=== PATIENT | female | born 1950 | race Hispanic/Latino ===

== ENCOUNTER 2021-08-10 16:15 | Inpatient (IN) | payer MEDICARE ==
--- NOTE | 2021-08-11 08:48 | History and Physical Report ---
GP History & Physical - History of Present Illness Date of admission: 08/10/21 Date of Examination: 08/11/21 Reason for Admission: Danger to self, Failure of Outpatient Treatment, Severe anxiety/depression History of Present Illness: The patient was seen today. She has poor insight. She says she was admitted to the hospital because she fell and hit her head. She says "I then started seizing and couldn't remember anything." She thinks that's the reason she was admitted to [facility]. The patient says she lives with her son. She says her son moved in after her passed in 2018. She denies any psych diagnoses but states she takes depakote. The patient denies SI/HI or hallucinations of any kind. PAST PSYCHIATRIC HISTORY: Unable to obtain PAST MEDICAL HISTORY: None reported Family Psychiatric History: None reported or documented SOCIAL HISTORY Unable to obtain REVIEW OF SYSTEMS Unable to obtain MENTAL STATUS EXAMINATION Unable to obtain Assessment (1) Neurocognitive W/Behavioral Disturbances Current Visit: Yes Status: Acute Treatment Plan Patient admitted for inpatient psychiatric evaluation, medication adjustment and close monitoring The patient's behavior, mood, sleep and appetite will be closely monitored. Patient enrolled in individual and group therapeutic sessions and encouraged to attend. Patient provided with a safe and structured environment. Patient's physical health needs will be addressed by the Hospitalist. Hospitalist Consulted Labs including CBC, CMP, Lipid profile and Hemoglobin A1C levels ordered for baseline reference Social Assessment will be completed and the Slab Grinder will work with patient and family to ensure a suitable and safe disposition Medication adjustment will be made as clinically indicated Restarted Home meds Usual Wellness Congregation/Preservation: - Start Trazodone 50 mg po QHS & 50 mg po QHS PRN between 10 PM & 2 AM for insomnia - Start Melatonin 5 mg po QHS to promote circadian rhythm The patient agreed on the treatment plan, understood the risk, benefit, alternative treatment, potential consequence of no treatment, and gave informed consent. Estimated days: 7 Post hospital care: primary care provider, psychiatric provider Case staffed with Dr. Lopez Legal Status: Voluntary Reaction to Hospitalization: Accepting Medications and Allergies Allergies Allergy/AdvReac Type Severity Reaction Status Date / Time cephalexin Allergy Unknown Verified 08/11/21 00:21 diphenhydramine Allergy Unknown Verified 08/11/21 00:22 gabapentin Allergy Unknown Unverified 08/10/21 16:24 Penicillins Allergy Unknown Unverified 08/10/21 16:24 Sulfa (Sulfonamide Allergy Unknown Unverified 08/10/21 16:24 Antibiotics) zolpidem Allergy Unknown Unverified 08/10/21 16:25 Home Medications Medication Instructions Recorded Confirmed Last Taken Type Divalproex Dr [DepaKOTE DR] 250 mg PO TID 08/10/21 08/10/21 Unknown History Oxycodone HCl [roxiCODONE] 30 mg PO Q8H PRN 08/10/21 08/10/21 Unknown History Quetiapine Fumarate [SEROquel] 50 mg PO QHS 08/10/21 08/10/21 Unknown History Tramadol HCl 25 mg PO Q8H PRN 08/10/21 08/11/21 Unknown History amLODIPine [Norvasc] 10 mg PO DAILY 08/10/21 08/10/21 Unknown History clonazePAM [KlonoPIN] 0.5 mg PO TID PRN 08/10/21 08/10/21 Unknown History Acetaminophen [Aphen] 650 mg PO Q6H PRN 08/11/21 08/11/21 Unknown History Ciprofloxacin HCl 500 mg PO BID 08/11/21 08/11/21 Unknown History Temazepam [Restoril] 30 mg PO QHS 08/11/21 08/11/21 Unknown History Results - Results Labs/Vitals: Last Vital Signs Temp 98.3 F 08/10/21 23:18 Pulse 74 08/10/21 23:18 Resp 16 08/10/21 23:18 BP 103/60 08/10/21 23:18 Pulse Ox 94 08/10/21 23:18 Physical Examination - Constitutional Vitals: Vital Signs Temp Pulse Resp BP Pulse Ox 98.3 F 74 16 103/60 94 08/10/21 23:18 08/10/21 23:18 08/10/21 23:18 08/10/21 23:18 08/10/21 23:18 Temperature -Last 24 Hours Temperature 98.3 F Mental Status Exam - Vital signs Last Vital Signs Temp 98.3 F 08/10/21 23:18 Pulse 74 08/10/21 23:18 Resp 16 08/10/21 23:18 BP 103/60 08/10/21 23:18 Pulse Ox 94 08/10/21 23:18 Physician Certification - Certification Statement Physician Certification Statement: This is an acknowledgement statement that ZOHREH GOMES is a 71 year old F who requires inpatient psychiatric admission for treatment which could reasonably be expected to improve the patient's condition for Estimated period of time patient will need to remain in the hospital: [ ] Plan for post-hospital care: [ ]
[2021-08-11] MEDS ORDERED: OXYCODONE HCL 30 MG PO PRN (08:50)
[2021-08-11] MEDS ORDERED: TRAMADOL HCL 100 MG PO PRN (08:50)
[2021-08-11] MEDS ORDERED: ACETAMINOPHEN 325 MG TAB PO PRN (09:00)
[2021-08-11] MEDS ORDERED: clonazePAM 0.5 MG TAB PO PRN (09:00)
[2021-08-11] MEDS ORDERED: NON-FORMULARY EACH (Ciprofloxacin Hcl [Ciprofloxacin Hcl] 500 MG Tablet) PO SCH (10:00)
[2021-08-11] MEDS: amLODIPine 10 MG TAB PO SCH (10:30)
[2021-08-11] MEDS: levoFLOXacin 500 MG TAB PO SCH (10:30)
[2021-08-11] MEDS ORDERED: traMADol 50 MG TAB PO PRN (12:00)
[2021-08-11] MEDS: DIVALPROEX DR 250 MG TAB PO SCH ×2 (14:57→20:50)
--- NOTE | 2021-08-11 15:15 | Consultation ---
History of Present Illness - Reason for Consult Consult date: 08/11/21 Medical consult Requesting physician: ERWIN LEWIS - History of Present Illness Patient was admitted with neurocognitive behavioral disturbances for further evaluation and management in [facility] Hospital service was requested for medical consult Patient has significant past medical history of hypertension, severe dementia, A. fib, acute on chronic encephalopathy, recurrent UTI The time of my evaluation patient is alert and awake responding appropriately Patient denies any chest pain or shortness of breath Denies any headache dizziness weakness or numbness Denies nausea vomiting or abdominal pain Patient has no new complaints but reports that she does not know why she is here Past History Past Medical History: atrial fib (With RVR currently rate controlled next), hypertension, seizures, other (And coagulopathy, dementia, recurrent UTI) Past Surgical History: No surgical history, Other (Multiple spine surgeries) Social history: denies: smoking, alcohol abuse, prescription drug abuse Family history: no significant family history Medications and Allergies Allergies Allergy/AdvReac Type Severity Reaction Status Date / Time cephalexin Allergy Unknown Verified 08/11/21 00:21 diphenhydramine Allergy Unknown Verified 08/11/21 00:22 gabapentin Allergy Unknown Unverified 08/10/21 16:24 Penicillins Allergy Unknown Unverified 08/10/21 16:24 Sulfa (Sulfonamide Allergy Unknown Unverified 08/10/21 16:24 Antibiotics) zolpidem Allergy Unknown Unverified 08/10/21 16:25 Home Medications Medication Instructions Recorded Confirmed Last Taken Type Divalproex Dr [DepaKOTE DR] 250 mg PO TID 08/10/21 08/10/21 Unknown History Oxycodone HCl [roxiCODONE] 30 mg PO Q8H PRN 08/10/21 08/10/21 Unknown History Quetiapine Fumarate [SEROquel] 50 mg PO QHS 08/10/21 08/10/21 Unknown History Tramadol HCl 25 mg PO Q8H PRN 08/10/21 08/11/21 Unknown History amLODIPine [Norvasc] 10 mg PO DAILY 08/10/21 08/10/21 Unknown History clonazePAM [KlonoPIN] 0.5 mg PO TID PRN 08/10/21 08/10/21 Unknown History Acetaminophen [Aphen] 650 mg PO Q6H PRN 08/11/21 08/11/21 Unknown History Ciprofloxacin HCl 500 mg PO BID 08/11/21 08/11/21 Unknown History Temazepam [Restoril] 30 mg PO QHS 08/11/21 08/11/21 Unknown History Active Meds: Active Medications Acetaminophen (Acetaminophen 325 Mg Tab) 650 mg PO Q6H PRN PRN Reason: Headache Amlodipine Besylate (Amlodipine 10 Mg Tab) 10 mg PO DAILY [facility] Last Admin: 08/11/21 10:30 Dose: 10 mg Clonazepam (Clonazepam 0.5 Mg Tab) 0.5 mg PO TID PRN PRN Reason: Seizures Divalproex Sodium (Divalproex Dr 250 Mg Tab) 250 mg PO TID [facility] Last Admin: 08/11/21 14:57 Dose: 250 mg Levofloxacin (Levofloxacin 500 Mg Tab) 500 mg PO Q24HR [facility] Last Admin: 08/11/21 10:30 Dose: 500 mg Oxycodone HCl (Oxycodone 15 Mg Tab) 30 mg PO Q8HR PRN PRN Reason: Pain , Severe (7-10) Quetiapine Fumarate (Quetiapine 25 Mg Tab) 50 mg PO QHS [facility] Temazepam (Temazepam 15 Mg Cap) 30 mg PO QHS [facility] Tramadol HCl (Tramadol 50 Mg Tab) 25 mg PO Q8H PRN PRN Reason: Pain, Moderate (4-6) Review of Systems Constitutional: fatigue, weakness, no weight loss, no weight gain Ears, nose, mouth and throat: no nasal congestion, no nasal discharge Cardiovascular: no chest pain, no orthopnea, no lightheadedness, no shortness of breath Respiratory: no cough, no shortness of breath Gastrointestinal: no nausea, no vomiting Genitourinary Female: no dysuria, no hematuria Musculoskeletal: low back pain, myalgias, arthritis, other (Chronic spine problems) Integumentary: no rash, no lesions Psychiatric: no anxiety, no depression Endocrine: no cold intolerance, no heat intolerance Hematologic/Lymphatic: no easy bruising, no easy bleeding Allergic/Immunologic: no urticaria, no allergic rhinitis Exam - Constitutional Vitals: Temp Pulse Resp BP Pulse Ox 98.6 F 82 16 133/54 94 08/11/21 09:11 08/11/21 10:30 08/11/21 09:11 08/11/21 10:30 08/11/21 09:11 General appearance: Present: no acute distress, well-nourished - EENT Eyes: Present: PERRL, EOM intact - Neck Neck: Present: supple, normal ROM - Respiratory Respiratory effort: normal Respiratory: bilateral: diminished, negative: rales, rhonchi, wheezing - Cardiovascular Rhythm: regular Heart Sounds: Present: S1 & S2 - Extremities Extremities: no ischemia, No edema - Abdominal General gastrointestinal: Present: soft, non-tender, non-distended, normal bowel sounds - Integumentary Integumentary: Present: clear, warm - Musculoskeletal Musculoskeletal: strength equal bilaterally, generalized weakness - Psychiatric Psychiatric: appropriate mood/affect, cooperative - Neurologic Neurologic: CNII-XII intact, moves all extremities Assessment and Plan --Chronic pain syndrome; Pain medications, supportive care --History of A. fib; rate controlled Currently asymptomatic Considers beta-blockers if needed --Hypertension; Well controlled, continue current antihypertensives As needed hydralazine --GERD; Pepcid 20 mg twice a day --Dementia; Not on any medications, continue supportive care --DVT prophylaxis; SCDs while resting, ambulate as tolerated We will closely monitor the patient and adjust management as needed Thank you for this consultation We will follow the patient along with you Call us with questions
[2021-08-11] MEDS ORDERED: hydrALAZINE 10 MG TAB PO PRN (20:00)
[2021-08-11] MEDS ORDERED: TEMAZEPAM 30 MG PO SCH (22:00)
[2021-08-11] MEDS ORDERED: NON-FORMULARY EACH (Quetiapine Fumarate [Seroquel] 50 MG Tablet) PO SCH (22:00)
[2021-08-11] MEDS: TEMAZEPAM 15 MG CAP PO SCH (22:13)
[2021-08-11] MEDS: QUEtiapine 25 MG TAB PO SCH (22:15)
[2021-08-12] MEDS: PANTOPRAZOLE 20 MG TAB PO SCH (07:43)
[2021-08-12] MEDS: DIVALPROEX DR 250 MG TAB PO SCH ×3 (07:43→20:44)
[2021-08-12 08:04] LABS: Basophils % (Auto) 0.9 % (0.0-1.8); Eosinophils # (Auto) 0.1 K/mm3 (0.0-0.4); Eosinophils % (Auto) 1.9 % (0.0-4.3); Hematocrit 39.2 % (30.3-42.9); Hemoglobin 12.8 gm/dl (10.1-14.3); Lymphocytes # (Auto) 1.9 K/mm3 (1.2-5.4); Lymphocytes % (Auto) 38.1 % (13.4-35.0); Mean Corpuscular HGB Conc 33 % (30-34); Mean Corpuscular Volume 91 fl (79-97); Monocytes # (Auto) 0.4 K/mm3 (0.0-0.8); Monocytes % (Auto) 7.4 % (0.0-7.3); Platelet Count 231 K/mm3 (140-440); Red Blood Count 4.29 M/mm3 (3.65-5.03); Red Cell Distribution Width 14.4 % (13.2-15.2)
[2021-08-12 08:31] LABS: Alanine Aminotransferase 20 units/L (7-56); Albumin 4.2 g/dL (3.9-5); Blood Urea Nitrogen 28 mg/dL (7-17); Calcium 9.9 mg/dL (8.4-10.2); Chol/HDL Ratio 2.31 %; HDL Cholesterol 63 mg/dL (40-59); Hemolysis Index 2; LDL Cholesterol,Direct 72 mg/dL (50-130)
[2021-08-12 08:35] LABS: BUN/Creatinine Ratio 47
--- NOTE | 2021-08-12 09:32 | Progress Note ---
Subjective Date of service: 08/12/21 Principal diagnosis: Neurocognitive w/behavioral Disturbance Subjective Comment: The patient was seen today. She says she still doesn't know why she's here when she had a seizure and fell. She denies SI/HI or hallucinations of any kind. REVIEW OF SYSTEMS Unable to obtain MENTAL STATUS EXAMINATION Unable to obtain Assessment (1) Neurocognitive W/Behavioral Disturbances Current Visit: Yes Status: Acute Treatment Plan Patient admitted for inpatient psychiatric evaluation, medication adjustment and close monitoring The patient's behavior, mood, sleep and appetite will be closely monitored. Patient enrolled in individual and group therapeutic sessions and encouraged to attend. Patient provided with a safe and structured environment. Patient's physical health needs will be addressed by the Hospitalist. Hospitalist Consulted Labs including CBC, CMP, Lipid profile and Hemoglobin A1C levels ordered for baseline reference Social Assessment will be completed and the Green Building Design Specialist will work with patient and family to ensure a suitable and safe disposition Medication adjustment will be made as clinically indicated Restarted Home meds Usual Wellness Yarsani/Preservation: - Start Trazodone 50 mg po QHS & 50 mg po QHS PRN between 10 PM & 2 AM for insomnia - Start Melatonin 5 mg po QHS to promote circadian rhythm The patient agreed on the treatment plan, understood the risk, benefit, alternative treatment, potential consequence of no treatment, and gave informed consent. Estimated days: 7 Post hospital care: primary care provider, psychiatric provider Case staffed with Dr. Lopez Medications and Allergies Allergies Allergy/AdvReac Type Severity Reaction Status Date / Time cephalexin Allergy Unknown Verified 08/11/21 00:21 diphenhydramine Allergy Unknown Verified 08/11/21 00:22 gabapentin Allergy Unknown Unverified 08/10/21 16:24 Penicillins Allergy Unknown Unverified 08/10/21 16:24 Sulfa (Sulfonamide Allergy Unknown Unverified 08/10/21 16:24 Antibiotics) zolpidem Allergy Unknown Unverified 08/10/21 16:25 Home Medications Medication Instructions Recorded Confirmed Last Taken Type Divalproex Dr [DepaKOTE DR] 250 mg PO TID 08/10/21 08/10/21 Unknown History Oxycodone HCl [roxiCODONE] 30 mg PO Q8H PRN 08/10/21 08/10/21 Unknown History Quetiapine Fumarate [SEROquel] 50 mg PO QHS 08/10/21 08/10/21 Unknown History Tramadol HCl 25 mg PO Q8H PRN 08/10/21 08/11/21 Unknown History amLODIPine [Norvasc] 10 mg PO DAILY 08/10/21 08/10/21 Unknown History clonazePAM [KlonoPIN] 0.5 mg PO TID PRN 08/10/21 08/10/21 Unknown History Acetaminophen [Aphen] 650 mg PO Q6H PRN 08/11/21 08/11/21 Unknown History Ciprofloxacin HCl 500 mg PO BID 08/11/21 08/11/21 Unknown History Temazepam [Restoril] 30 mg PO QHS 08/11/21 08/11/21 Unknown History Active Meds: Active Medications Acetaminophen (Acetaminophen 325 Mg Tab) 650 mg PO Q6H PRN PRN Reason: Headache Amlodipine Besylate (Amlodipine 10 Mg Tab) 10 mg PO DAILY [facility] Last Admin: 08/11/21 10:30 Dose: 10 mg Clonazepam (Clonazepam 0.5 Mg Tab) 0.5 mg PO TID PRN PRN Reason: Seizures Divalproex Sodium (Divalproex Dr 250 Mg Tab) 250 mg PO TID [facility] Last Admin: 08/12/21 07:43 Dose: 250 mg Hydralazine HCl (Hydralazine 10 Mg Tab) 10 mg PO Q4H PRN PRN Reason: Hypertension Levofloxacin (Levofloxacin 500 Mg Tab) 500 mg PO Q24HR [facility] Last Admin: 08/11/21 10:30 Dose: 500 mg Oxycodone HCl (Oxycodone 15 Mg Tab) 30 mg PO Q8HR PRN PRN Reason: Pain , Severe (7-10) Pantoprazole Sodium (Pantoprazole 20 Mg Tab) 20 mg PO QDAC [facility] Last Admin: 08/12/21 07:43 Dose: 20 mg Quetiapine Fumarate (Quetiapine 25 Mg Tab) 50 mg PO QHS [facility] Last Admin: 08/11/21 22:15 Dose: 50 mg Temazepam (Temazepam 15 Mg Cap) 30 mg PO QHS [facility] Last Admin: 08/11/21 22:13 Dose: 30 mg Tramadol HCl (Tramadol 50 Mg Tab) 25 mg PO Q8H PRN PRN Reason: Pain, Moderate (4-6) Results - Results Labs/Vitals: Laboratory Last Values WBC 4.9 K/mm3 (4.5-11.0) 08/12/21 07:36 RBC 4.29 M/mm3 (3.65-5.03) 08/12/21 07:36 Hgb 12.8 gm/dl (10.1-14.3) 08/12/21 07:36 Hct 39.2 % (30.3-42.9) 08/12/21 07:36 MCV 91 fl (79-97) 08/12/21 07:36 MCH 30 pg (28-32) 08/12/21 07:36 MCHC 33 % (30-34) 08/12/21 07:36 RDW 14.4 % (13.2-15.2) 08/12/21 07:36 Plt Count 231 K/mm3 (140-440) 08/12/21 07:36 Lymph % (Auto) 38.1 % (13.4-35.0) H 08/12/21 07:36 Cherry % (Auto) 7.4 % (0.0-7.3) H 08/12/21 07:36 Eos % (Auto) 1.9 % (0.0-4.3) 08/12/21 07:36 Baso % (Auto) 0.9 % (0.0-1.8) 08/12/21 07:36 Lymph # (Auto) 1.9 K/mm3 (1.2-5.4) 08/12/21 07:36 Cherry # (Auto) 0.4 K/mm3 (0.0-0.8) 08/12/21 07:36 Eos # (Auto) 0.1 K/mm3 (0.0-0.4) 08/12/21 07:36 Baso # (Auto) 0.0 K/mm3 (0.0-0.1) 08/12/21 07:36 Seg Neutrophils % 51.7 % (40.0-70.0) 08/12/21 07:36 Seg Neutrophils # 2.5 K/mm3 (1.8-7.7) 08/12/21 07:36 Sodium 135 mmol/L (137-145) L 08/12/21 07:36 Potassium 3.5 mmol/L (3.6-5.0) L 08/12/21 07:36 Chloride 98.2 mmol/L (98-107) 08/12/21 07:36 Carbon Dioxide 29 mmol/L (22-30) 08/12/21 07:36 Anion Gap 11 mmol/L 08/12/21 07:36 BUN 28 mg/dL (7-17) H 08/12/21 07:36 Creatinine 0.6 mg/dL (0.6-1.2) 08/12/21 07:36 Estimated GFR > 60 ml/min 08/12/21 07:36 BUN/Creatinine Ratio 47 % 08/12/21 07:36 Glucose 90 mg/dL (65-100) 08/12/21 07:36 Hemoglobin A1c 5.4 % (4-6) 08/12/21 07:36 Calcium 9.9 mg/dL (8.4-10.2) 08/12/21 07:36 Total Bilirubin 0.30 mg/dL (0.1-1.2) 08/12/21 07:36 AST 24 units/L (5-40) 08/12/21 07:36 ALT 20 units/L (7-56) 08/12/21 07:36 Alkaline Phosphatase 72 units/L (35-129) 08/12/21 07:36 Total Protein 7.4 g/dL (6.3-8.2) 08/12/21 07:36 Albumin 4.2 g/dL (3.9-5) 08/12/21 07:36 Albumin/Globulin Ratio 1.3 % 08/12/21 07:36 Triglycerides 65 mg/dL (2-149) 08/12/21 07:36 Cholesterol 146 mg/dL (50-199) 08/12/21 07:36 LDL Cholesterol Direct 72 mg/dL (50-130) 08/12/21 07:36 HDL Cholesterol 63 mg/dL (40-59) H 08/12/21 07:36 Cholesterol/HDL Ratio 2.31 % 08/12/21 07:36 TSH 1.570 mlU/mL (0.270-4.200) 08/12/21 07:36 Last Vital Signs Temp 98.4 F 08/11/21 20:13 Pulse 85 08/11/21 20:13 Resp 20 08/11/21 20:13 BP 145/75 08/11/21 20:13 Pulse Ox 96 08/11/21 20:13
[2021-08-12] MEDS: levoFLOXacin 500 MG TAB PO SCH (09:55)
[2021-08-12] MEDS: amLODIPine 10 MG TAB PO SCH (09:55)
[2021-08-12] MEDS ORDERED: POTASSIUM CHLORIDE ER 10 MEQ TAB PO ONE (18:41)
[2021-08-12] MEDS: QUEtiapine 25 MG TAB PO SCH (21:18)
[2021-08-12] MEDS: TEMAZEPAM 15 MG CAP PO SCH (21:18)
[2021-08-13] MEDS: OXYCODONE 15 MG TAB PO PRN ×2 (00:39→22:02)
[2021-08-13] MEDS: DIVALPROEX DR 250 MG TAB PO SCH ×3 (07:50→21:08)
[2021-08-13] MEDS: PANTOPRAZOLE 20 MG TAB PO SCH (07:51)
--- NOTE | 2021-08-13 09:12 | Progress Note ---
Subjective Date of service: 08/13/21 Principal diagnosis: Neurocognitive w/behavioral Disturbance Subjective Comment: The patient was seen today. She says she feels fantastic. She says her appetite is fantastic. The patient says she is not sleeping well. She says "what you are giving me is not working to keep me asleep." She denies SI/HI or hallucinations of any kind. Nursing staff states the patient was observed restless and hallucinating. REVIEW OF SYSTEMS Unable to obtain MENTAL STATUS EXAMINATION Unable to obtain Assessment (1) Neurocognitive W/Behavioral Disturbances Current Visit: Yes Status: Acute Treatment Plan Patient admitted for inpatient psychiatric evaluation, medication adjustment and close monitoring The patient's behavior, mood, sleep and appetite will be closely monitored. Patient enrolled in individual and group therapeutic sessions and encouraged to attend. Patient provided with a safe and structured environment. Patient's physical health needs will be addressed by the Hospitalist. Hospitalist Consulted Labs including CBC, CMP, Lipid profile and Hemoglobin A1C levels ordered for baseline reference Social Assessment will be completed and the Fish And Wildlife Biologist will work with patient and family to ensure a suitable and safe disposition Medication adjustment will be made as clinically indicated Increase Seroquel 50mg po BID Start Melatonin 5mg po qhs prn insomnia Usual Wellness Islam/Preservation: - Start Trazodone 50 mg po QHS & 50 mg po QHS PRN between 10 PM & 2 AM for insomnia - Start Melatonin 5 mg po QHS to promote circadian rhythm The patient agreed on the treatment plan, understood the risk, benefit, alternative treatment, potential consequence of no treatment, and gave informed consent. Estimated days: 7 Post hospital care: primary care provider, psychiatric provider Case staffed with Dr. Lopez Medications and Allergies Allergies Allergy/AdvReac Type Severity Reaction Status Date / Time cephalexin Allergy Unknown Verified 08/11/21 00:21 diphenhydramine Allergy Unknown Verified 08/11/21 00:22 gabapentin Allergy Unknown Unverified 08/10/21 16:24 Penicillins Allergy Unknown Unverified 08/10/21 16:24 Sulfa (Sulfonamide Allergy Unknown Unverified 08/10/21 16:24 Antibiotics) zolpidem Allergy Unknown Unverified 08/10/21 16:25 Home Medications Medication Instructions Recorded Confirmed Last Taken Type Divalproex [Sesar FARAH] 250 mg PO TID 08/10/21 08/10/21 Unknown History Oxycodone HCl [roxiCODONE] 30 mg PO Q8H PRN 08/10/21 08/10/21 Unknown History Quetiapine Fumarate [SEROquel] 50 mg PO QHS 08/10/21 08/10/21 Unknown History Tramadol HCl 25 mg PO Q8H PRN 08/10/21 08/11/21 Unknown History amLODIPine [Norvasc] 10 mg PO DAILY 08/10/21 08/10/21 Unknown History clonazePAM [KlonoPIN] 0.5 mg PO TID PRN 08/10/21 08/10/21 Unknown History Acetaminophen [Aphen] 650 mg PO Q6H PRN 08/11/21 08/11/21 Unknown History Ciprofloxacin HCl 500 mg PO BID 08/11/21 08/11/21 Unknown History Temazepam [Restoril] 30 mg PO QHS 08/11/21 08/11/21 Unknown History Active Meds: Active Medications Acetaminophen (Acetaminophen 325 Mg Tab) 650 mg PO Q6H PRN PRN Reason: Headache Amlodipine Besylate (Amlodipine 10 Mg Tab) 10 mg PO DAILY [facility] Last Admin: 08/12/21 09:55 Dose: 10 mg Clonazepam (Clonazepam 0.5 Mg Tab) 0.5 mg PO TID PRN PRN Reason: Seizures Divalproex Sodium (Divalproex Dr 250 Mg Tab) 250 mg PO TID [facility] Last Admin: 08/13/21 07:50 Dose: 250 mg Hydralazine HCl (Hydralazine 10 Mg Tab) 10 mg PO Q4H PRN PRN Reason: Hypertension Levofloxacin (Levofloxacin 500 Mg Tab) 500 mg PO Q24HR [facility] Last Admin: 08/12/21 09:55 Dose: 500 mg Oxycodone HCl (Oxycodone 15 Mg Tab) 30 mg PO Q8HR PRN PRN Reason: Pain , Severe (7-10) Last Admin: 08/13/21 00:39 Dose: 30 mg Pantoprazole Sodium (Pantoprazole 20 Mg Tab) 20 mg PO QDAC [facility] Last Admin: 08/13/21 07:51 Dose: 20 mg Quetiapine Fumarate (Quetiapine 25 Mg Tab) 50 mg PO QHS [facility] Last Admin: 08/12/21 21:18 Dose: 50 mg Temazepam (Temazepam 15 Mg Cap) 30 mg PO QHS [facility] Last Admin: 08/12/21 21:18 Dose: 30 mg Tramadol HCl (Tramadol 50 Mg Tab) 25 mg PO Q8H PRN PRN Reason: Pain, Moderate (4-6) Last Admin: 08/12/21 21:16 Dose: 25 mg Results - Results Labs/Vitals: Laboratory Last Values WBC 4.9 K/mm3 (4.5-11.0) 08/12/21 07:36 RBC 4.29 M/mm3 (3.65-5.03) 08/12/21 07:36 Hgb 12.8 gm/dl (10.1-14.3) 08/12/21 07:36 Hct 39.2 % (30.3-42.9) 08/12/21 07:36 MCV 91 fl (79-97) 08/12/21 07:36 MCH 30 pg (28-32) 08/12/21 07:36 MCHC 33 % (30-34) 08/12/21 07:36 RDW 14.4 % (13.2-15.2) 08/12/21 07:36 Plt Count 231 K/mm3 (140-440) 08/12/21 07:36 Lymph % (Auto) 38.1 % (13.4-35.0) H 08/12/21 07:36 Bureau % (Auto) 7.4 % (0.0-7.3) H 08/12/21 07:36 Eos % (Auto) 1.9 % (0.0-4.3) 08/12/21 07:36 Baso % (Auto) 0.9 % (0.0-1.8) 08/12/21 07:36 Lymph # (Auto) 1.9 K/mm3 (1.2-5.4) 08/12/21 07:36 Bureau # (Auto) 0.4 K/mm3 (0.0-0.8) 08/12/21 07:36 Eos # (Auto) 0.1 K/mm3 (0.0-0.4) 08/12/21 07:36 Baso # (Auto) 0.0 K/mm3 (0.0-0.1) 08/12/21 07:36 Seg Neutrophils % 51.7 % (40.0-70.0) 08/12/21 07:36 Seg Neutrophils # 2.5 K/mm3 (1.8-7.7) 08/12/21 07:36 Sodium 135 mmol/L (137-145) L 08/12/21 07:36 Potassium 3.5 mmol/L (3.6-5.0) L 08/12/21 07:36 Chloride 98.2 mmol/L (98-107) 08/12/21 07:36 Carbon Dioxide 29 mmol/L (22-30) 08/12/21 07:36 Anion Gap 11 mmol/L 08/12/21 07:36 BUN 28 mg/dL (7-17) H 08/12/21 07:36 Creatinine 0.6 mg/dL (0.6-1.2) 08/12/21 07:36 Estimated GFR > 60 ml/min 08/12/21 07:36 BUN/Creatinine Ratio 47 % 08/12/21 07:36 Glucose 90 mg/dL (65-100) 08/12/21 07:36 Hemoglobin A1c 5.4 % (4-6) 08/12/21 07:36 Calcium 9.9 mg/dL (8.4-10.2) 08/12/21 07:36 Total Bilirubin 0.30 mg/dL (0.1-1.2) 08/12/21 07:36 AST 24 units/L (5-40) 08/12/21 07:36 ALT 20 units/L (7-56) 08/12/21 07:36 Alkaline Phosphatase 72 units/L (35-129) 08/12/21 07:36 Total Protein 7.4 g/dL (6.3-8.2) 08/12/21 07:36 Albumin 4.2 g/dL (3.9-5) 08/12/21 07:36 Albumin/Globulin Ratio 1.3 % 08/12/21 07:36 Triglycerides 65 mg/dL (2-149) 08/12/21 07:36 Cholesterol 146 mg/dL (50-199) 08/12/21 07:36 LDL Cholesterol Direct 72 mg/dL (50-130) 08/12/21 07:36 HDL Cholesterol 63 mg/dL (40-59) H 08/12/21 07:36 Cholesterol/HDL Ratio 2.31 % 08/12/21 07:36 TSH 1.570 mlU/mL (0.270-4.200) 08/12/21 07:36 Last Vital Signs Temp 97.6 F 08/12/21 19:29 Pulse 84 08/12/21 19:29 Resp 18 08/12/21 21:16 BP 138/78 08/12/21 19:29 Pulse Ox 98 08/12/21 19:29
[2021-08-13] MEDS ORDERED: MELATONIN 5 MG TAB PO PRN (09:14)
[2021-08-13] MEDS: QUEtiapine 25 MG TAB PO SCH ×2 (10:07→21:08)
[2021-08-13] MEDS: levoFLOXacin 500 MG TAB PO SCH (10:08)
[2021-08-13] MEDS: amLODIPine 10 MG TAB PO SCH (10:09)
--- NOTE | 2021-08-13 21:07 | Progress Note ---
Assessment and Plan Assessment and plan: --History of A. fib; rate controlled Currently asymptomatic Considers beta-blockers if needed Patient is not on chronic anticoagulation --Hypertension; Well controlled, continue current antihypertensives As needed hydralazine --GERD;Pepcid 20 mg twice a day --Dementia; Not on any medications, continue supportive care --DVT prophylaxis; SCDs while resting, ambulate as tolerated We will closely monitor the patient and adjust management as needed Thank you for this consultation Call us with questions History Interval history: I have seen and examined the patient this afternoon in [facility] Patient's chart and medications reviewed. Patient is in day room, no new complaints No events reported by nursing staff Hospitalist Physical - Constitutional Vitals: Temp Pulse Resp BP Pulse Ox 97.6 F 71 18 121/46 98 08/12/21 19:29 08/13/21 10:09 08/12/21 21:16 08/13/21 10:09 08/12/21 19:29 General appearance: Present: no acute distress, well-nourished - EENT Eyes: Present: PERRL, EOM intact - Neck Neck: Present: supple, normal ROM - Respiratory Respiratory effort: normal Respiratory: negative: diminished, rales, rhonchi - Cardiovascular Rhythm: regular Heart Sounds: Present: S1 & S2 - Extremities Extremities: no ischemia, No edema - Abdominal General gastrointestinal: soft, non-tender, non-distended, normal bowel sounds - Integumentary Integumentary: Present: clear, warm - Psychiatric Psychiatric: appropriate mood/affect, cooperative - Neurologic Neurologic: moves all extremities Results - Labs CBC & Chem 7: 08/12/21 07:36 08/12/21 07:36 Labs: Laboratory Last Values WBC 4.9 K/mm3 (4.5-11.0) 08/12/21 07:36 RBC 4.29 M/mm3 (3.65-5.03) 08/12/21 07:36 Hgb 12.8 gm/dl (10.1-14.3) 08/12/21 07:36 Hct 39.2 % (30.3-42.9) 08/12/21 07:36 MCV 91 fl (79-97) 08/12/21 07:36 MCH 30 pg (28-32) 08/12/21 07:36 MCHC 33 % (30-34) 08/12/21 07:36 RDW 14.4 % (13.2-15.2) 08/12/21 07:36 Plt Count 231 K/mm3 (140-440) 08/12/21 07:36 Lymph % (Auto) 38.1 % (13.4-35.0) H 08/12/21 07:36 [place] % (Auto) 7.4 % (0.0-7.3) H 08/12/21 07:36 Eos % (Auto) 1.9 % (0.0-4.3) 08/12/21 07:36 Baso % (Auto) 0.9 % (0.0-1.8) 08/12/21 07:36 Lymph # (Auto) 1.9 K/mm3 (1.2-5.4) 08/12/21 07:36 [place] # (Auto) 0.4 K/mm3 (0.0-0.8) 08/12/21 07:36 Eos # (Auto) 0.1 K/mm3 (0.0-0.4) 08/12/21 07:36 Baso # (Auto) 0.0 K/mm3 (0.0-0.1) 08/12/21 07:36 Seg Neutrophils % 51.7 % (40.0-70.0) 08/12/21 07:36 Seg Neutrophils # 2.5 K/mm3 (1.8-7.7) 08/12/21 07:36 Sodium 135 mmol/L (137-145) L 08/12/21 07:36 Potassium 3.5 mmol/L (3.6-5.0) L 08/12/21 07:36 Chloride 98.2 mmol/L (98-107) 08/12/21 07:36 Carbon Dioxide 29 mmol/L (22-30) 08/12/21 07:36 Anion Gap 11 mmol/L 08/12/21 07:36 BUN 28 mg/dL (7-17) H 08/12/21 07:36 Creatinine 0.6 mg/dL (0.6-1.2) 08/12/21 07:36 Estimated GFR > 60 ml/min 08/12/21 07:36 BUN/Creatinine Ratio 47 % 08/12/21 07:36 Glucose 90 mg/dL (65-100) 08/12/21 07:36 Hemoglobin A1c 5.4 % (4-6) 08/12/21 07:36 Calcium 9.9 mg/dL (8.4-10.2) 08/12/21 07:36 Total Bilirubin 0.30 mg/dL (0.1-1.2) 08/12/21 07:36 AST 24 units/L (5-40) 08/12/21 07:36 ALT 20 units/L (7-56) 08/12/21 07:36 Alkaline Phosphatase 72 units/L (35-129) 08/12/21 07:36 Total Protein 7.4 g/dL (6.3-8.2) 08/12/21 07:36 Albumin 4.2 g/dL (3.9-5) 08/12/21 07:36 Albumin/Globulin Ratio 1.3 % 08/12/21 07:36 Triglycerides 65 mg/dL (2-149) 08/12/21 07:36 Cholesterol 146 mg/dL (50-199) 08/12/21 07:36 LDL Cholesterol Direct 72 mg/dL (50-130) 08/12/21 07:36 HDL Cholesterol 63 mg/dL (40-59) H 08/12/21 07:36 Cholesterol/HDL Ratio 2.31 % 08/12/21 07:36 TSH 1.570 mlU/mL (0.270-4.200) 08/12/21 07:36 [place]/IV: Voiding Method Toilet Active Medications - Current Medications Current Medications: Generic Name Dose Route Start Last Admin Trade Name Freq PRN Reason Stop Dose Admin Acetaminophen 650 mg 08/11/21 09:00 Acetaminophen 325 Mg Tab PO Q6H PRN Headache Amlodipine Besylate 10 mg 08/11/21 10:00 08/13/21 10:09 Amlodipine 10 Mg Tab PO Not Given DAILY NAM Clonazepam 0.5 mg 08/11/21 09:00 Clonazepam 0.5 Mg Tab PO TID PRN Seizures Divalproex Sodium 250 mg 08/11/21 14:00 08/13/21 13:[address] 250 Mg Tab PO 250 mg TID NAM Administration Hydralazine HCl 10 mg 08/11/21 20:00 Hydralazine 10 Mg Tab PO Q4H PRN Hypertension Levofloxacin 500 mg 08/11/21 11:00 08/13/21 10:08 Levofloxacin 500 Mg Tab PO 500 mg Q24HR NAM Administration Melatonin 5 mg 08/13/21 09:14 Melatonin 5 Mg Tab PO QHS PRN Sleep Oxycodone HCl 30 mg 08/11/21 14:00 08/13/21 00:39 Oxycodone 15 Mg Tab PO 30 mg Q8HR PRN Administration Pain , Severe (7-10) Pantoprazole Sodium 20 mg 08/12/21 07:30 08/13/21 07:51 Pantoprazole 20 Mg Tab PO 20 mg QDAC NAM Administration Quetiapine Fumarate 50 mg 08/13/21 10:00 08/13/21 10:07 Quetiapine 25 Mg Tab PO 50 mg BID NAM Administration Temazepam 30 mg 08/11/21 22:00 08/12/21 21:18 Temazepam 15 Mg Cap PO 30 mg QHS NAM Administration Tramadol HCl 25 mg 08/11/21 12:00 08/12/21 21:16 Tramadol 50 Mg Tab PO 25 mg Q8H PRN Administration Pain, Moderate (4-6)
[2021-08-13] MEDS: TEMAZEPAM 15 MG CAP PO SCH (21:09)
[2021-08-14] MEDS: PANTOPRAZOLE 20 MG TAB PO SCH (08:09)
[2021-08-14] MEDS: DIVALPROEX DR 250 MG TAB PO SCH ×3 (08:09→20:26)
[2021-08-14] MEDS: levoFLOXacin 500 MG TAB PO SCH (09:37)
[2021-08-14] MEDS: QUEtiapine 25 MG TAB PO SCH ×2 (09:37→21:13)
[2021-08-14] MEDS: amLODIPine 10 MG TAB PO SCH (09:38)
--- NOTE | 2021-08-14 11:09 | Progress Note ---
Subjective Date of service: 08/14/21 Principal diagnosis: Neurocognitive w/behavioral Disturbance Subjective Comment: The patient was seen today. She is calm and cooperative. She says she slept a lot better last night with a total of 6 hours. She says "that's a record." The patient denies SI/HI, hallucinations. REVIEW OF SYSTEMS Unable to obtain MENTAL STATUS EXAMINATION Unable to obtain Assessment (1) Neurocognitive W/Behavioral Disturbances Current Visit: Yes Status: Acute Treatment Plan Patient admitted for inpatient psychiatric evaluation, medication adjustment and close monitoring The patient's behavior, mood, sleep and appetite will be closely monitored. Patient enrolled in individual and group therapeutic sessions and encouraged to attend. Patient provided with a safe and structured environment. Patient's physical health needs will be addressed by the Hospitalist. Hospitalist Consulted Labs including CBC, CMP, Lipid profile and Hemoglobin A1C levels ordered for baseline reference Social Assessment will be completed and the Sheep Farm Worker will work with patient and family to ensure a suitable and safe disposition Medication adjustment will be made as clinically indicated Increase Seroquel 50mg po BID yesterday Start Melatonin 5mg po qhs prn insomnia yesterday No medication changes today Usual Wellness Faith/Preservation: - Start Trazodone 50 mg po QHS & 50 mg po QHS PRN between 10 PM & 2 AM for insomnia - Start Melatonin 5 mg po QHS to promote circadian rhythm The patient agreed on the treatment plan, understood the risk, benefit, alternative treatment, potential consequence of no treatment, and gave informed consent. Estimated days: 7 Post hospital care: primary care provider, psychiatric provider Case staffed with Dr. Lopez Medications and Allergies Allergies Allergy/AdvReac Type Severity Reaction Status Date / Time cephalexin Allergy Unknown Verified 08/11/21 00:21 diphenhydramine Allergy Unknown Verified 08/11/21 00:22 gabapentin Allergy Unknown Unverified 08/10/21 16:24 Penicillins Allergy Unknown Unverified 08/10/21 16:24 Sulfa (Sulfonamide Allergy Unknown Unverified 08/10/21 16:24 Antibiotics) zolpidem Allergy Unknown Unverified 08/10/21 16:25 Home Medications Medication Instructions Recorded Confirmed Last Taken Type Divalproex Dr [DepaKOTE DR] 250 mg PO TID 08/10/21 08/10/21 Unknown History Oxycodone HCl [roxiCODONE] 30 mg PO Q8H PRN 08/10/21 08/10/21 Unknown History Quetiapine Fumarate [SEROquel] 50 mg PO QHS 08/10/21 08/10/21 Unknown History Tramadol HCl 25 mg PO Q8H PRN 08/10/21 08/11/21 Unknown History amLODIPine [Norvasc] 10 mg PO DAILY 08/10/21 08/10/21 Unknown History clonazePAM [KlonoPIN] 0.5 mg PO TID PRN 08/10/21 08/10/21 Unknown History Acetaminophen [Aphen] 650 mg PO Q6H PRN 08/11/21 08/11/21 Unknown History Ciprofloxacin HCl 500 mg PO BID 08/11/21 08/11/21 Unknown History Temazepam [Restoril] 30 mg PO QHS 08/11/21 08/11/21 Unknown History Active Meds: Active Medications Acetaminophen (Acetaminophen 325 Mg Tab) 650 mg PO Q6H PRN PRN Reason: Headache Amlodipine Besylate (Amlodipine 10 Mg Tab) 10 mg PO DAILY [facility] Last Admin: 08/14/21 09:38 Dose: Not Given Clonazepam (Clonazepam 0.5 Mg Tab) 0.5 mg PO TID PRN PRN Reason: Seizures Divalproex Sodium (Divalproex Dr 250 Mg Tab) 250 mg PO TID [facility] Last Admin: 08/14/21 08:09 Dose: 250 mg Hydralazine HCl (Hydralazine 10 Mg Tab) 10 mg PO Q4H PRN PRN Reason: Hypertension Levofloxacin (Levofloxacin 500 Mg Tab) 500 mg PO Q24HR [facility] Stop: 08/15/21 10:01 Last Admin: 08/14/21 09:37 Dose: 500 mg Melatonin (Melatonin 5 Mg Tab) 5 mg PO QHS PRN PRN Reason: Sleep Last Admin: 08/13/21 21:08 Dose: 5 mg Oxycodone HCl (Oxycodone 15 Mg Tab) 30 mg PO Q8HR PRN PRN Reason: Pain , Severe (7-10) Last Admin: 08/13/21 22:02 Dose: 30 mg Pantoprazole Sodium (Pantoprazole 20 Mg Tab) 20 mg PO QDAC [facility] Last Admin: 08/14/21 08:09 Dose: 20 mg Quetiapine Fumarate (Quetiapine 25 Mg Tab) 50 mg PO BID [facility] Last Admin: 08/14/21 09:37 Dose: 50 mg Temazepam (Temazepam 15 Mg Cap) 30 mg PO QHS NAM Last Admin: 08/13/21 21:09 Dose: 30 mg Tramadol HCl (Tramadol 50 Mg Tab) 25 mg PO Q8H PRN PRN Reason: Pain, Moderate (4-6) Last Admin: 08/12/21 21:16 Dose: 25 mg Results - Results Labs/Vitals: Laboratory Last Values WBC 4.9 K/mm3 (4.5-11.0) 08/12/21 07:36 RBC 4.29 M/mm3 (3.65-5.03) 08/12/21 07:36 Hgb 12.8 gm/dl (10.1-14.3) 08/12/21 07:36 Hct 39.2 % (30.3-42.9) 08/12/21 07:36 MCV 91 fl (79-97) 08/12/21 07:36 MCH 30 pg (28-32) 08/12/21 07:36 MCHC 33 % (30-34) 08/12/21 07:36 RDW 14.4 % (13.2-15.2) 08/12/21 07:36 Plt Count 231 K/mm3 (140-440) 08/12/21 07:36 Lymph % (Auto) 38.1 % (13.4-35.0) H 08/12/21 07:36 [place] % (Auto) 7.4 % (0.0-7.3) H 08/12/21 07:36 Eos % (Auto) 1.9 % (0.0-4.3) 08/12/21 07:36 Baso % (Auto) 0.9 % (0.0-1.8) 08/12/21 07:36 Lymph # (Auto) 1.9 K/mm3 (1.2-5.4) 08/12/21 07:36 [place] # (Auto) 0.4 K/mm3 (0.0-0.8) 08/12/21 07:36 Eos # (Auto) 0.1 K/mm3 (0.0-0.4) 08/12/21 07:36 Baso # (Auto) 0.0 K/mm3 (0.0-0.1) 08/12/21 07:36 Seg Neutrophils % 51.7 % (40.0-70.0) 08/12/21 07:36 Seg Neutrophils # 2.5 K/mm3 (1.8-7.7) 08/12/21 07:36 Sodium 135 mmol/L (137-145) L 08/12/21 07:36 Potassium 3.5 mmol/L (3.6-5.0) L 08/12/21 07:36 Chloride 98.2 mmol/L (98-107) 08/12/21 07:36 Carbon Dioxide 29 mmol/L (22-30) 08/12/21 07:36 Anion Gap 11 mmol/L 08/12/21 07:36 BUN 28 mg/dL (7-17) H 08/12/21 07:36 Creatinine 0.6 mg/dL (0.6-1.2) 08/12/21 07:36 Estimated GFR > 60 ml/min 08/12/21 07:36 BUN/Creatinine Ratio 47 % 08/12/21 07:36 Glucose 90 mg/dL (65-100) 08/12/21 07:36 Hemoglobin A1c 5.4 % (4-6) 08/12/21 07:36 Calcium 9.9 mg/dL (8.4-10.2) 08/12/21 07:36 Total Bilirubin 0.30 mg/dL (0.1-1.2) 08/12/21 07:36 AST 24 units/L (5-40) 08/12/21 07:36 ALT 20 units/L (7-56) 08/12/21 07:36 Alkaline Phosphatase 72 units/L (35-129) 08/12/21 07:36 Total Protein 7.4 g/dL (6.3-8.2) 08/12/21 07:36 Albumin 4.2 g/dL (3.9-5) 08/12/21 07:36 Albumin/Globulin Ratio 1.3 % 08/12/21 07:36 Triglycerides 65 mg/dL (2-149) 08/12/21 07:36 Cholesterol 146 mg/dL (50-199) 08/12/21 07:36 LDL Cholesterol Direct 72 mg/dL (50-130) 08/12/21 07:36 HDL Cholesterol 63 mg/dL (40-59) H 08/12/21 07:36 Cholesterol/HDL Ratio 2.31 % 08/12/21 07:36 TSH 1.570 mlU/mL (0.270-4.200) 08/12/21 07:36 Last Vital Signs Temp 98.3 F 08/14/21 09:32 Pulse 71 08/14/21 09:32 Resp 18 08/14/21 09:32 BP 113/52 08/14/21 09:38 Pulse Ox 97 08/14/21 09:32
--- NOTE | 2021-08-14 20:54 | Progress Note ---
Assessment and Plan - Patient Problems (1) Vascular dementia with behavioral disturbance Current Visit: Yes Status: Acute Plan to address problem: Verbal prompting, verbal redirection, benzodiazepine therapy as clinically indicated. (2) Cerebral atherosclerosis Current Visit: Yes Status: Acute Plan to address problem: Risk factor reduction, antiplatelet therapy as clinically indicated. (3) GAYATHRI (generalized anxiety disorder) Current Visit: Yes Status: Acute Plan to address problem: Benzodiazepine therapy as clinically indicated. (4) Depression Current Visit: Yes Status: Acute Plan to address problem: Continue medical management, cognitive behavioral therapy. (5) Paroxysmal A-fib Current Visit: Yes Status: Acute Plan to address problem: Supportive care, rate control. Continue current therapy. (6) Chronic pain syndrome Current Visit: Yes Status: Acute Plan to address problem: Pain control, pain assessment as per nursing protocol. (7) Malnutrition Current Visit: Yes Status: Acute Qualifiers: Protein-calorie malnutrition severity: moderate Plan to address problem: Dietary supplementation, increase protein intake, History Interval history: 71 YO Female with Vascular Dementia with Behavioral Disturbance, Cerebral Atherosclerosis, GAYATHRI, MDD, HTN, Praoxysmal Atrial Fib, chronic pain Syndrome admitted to [facility] for psychiatric stabilization. Consult placed by Dr. Franklin for medical management. Patient seen and evaluated in the recreation room. Patient denies fever, chills, chest pain, palpitation, adductive cough, skin rash, recent contact, known exposure to COVID-19. Patient resting comfortably. Patient denies pain. No reported nursing events. Hospitalist Physical - Constitutional Vitals: Temp Pulse Resp BP Pulse Ox 98.3 F 71 18 113/52 97 08/14/21 09:32 08/14/21 09:32 08/14/21 09:32 08/14/21 09:38 08/14/21 09:32 General appearance: Present: no acute distress, well-nourished Results - Labs CBC & Chem 7: 08/12/21 07:36 08/12/21 07:36 Labs: Laboratory Last Values WBC 4.9 K/mm3 (4.5-11.0) 08/12/21 07:36 RBC 4.29 M/mm3 (3.65-5.03) 08/12/21 07:36 Hgb 12.8 gm/dl (10.1-14.3) 08/12/21 07:36 Hct 39.2 % (30.3-42.9) 08/12/21 07:36 MCV 91 fl (79-97) 08/12/21 07:36 MCH 30 pg (28-32) 08/12/21 07:36 MCHC 33 % (30-34) 08/12/21 07:36 RDW 14.4 % (13.2-15.2) 08/12/21 07:36 Plt Count 231 K/mm3 (140-440) 08/12/21 07:36 Lymph % (Auto) 38.1 % (13.4-35.0) H 08/12/21 07:36 [place] % (Auto) 7.4 % (0.0-7.3) H 08/12/21 07:36 Eos % (Auto) 1.9 % (0.0-4.3) 08/12/21 07:36 Baso % (Auto) 0.9 % (0.0-1.8) 08/12/21 07:36 Lymph # (Auto) 1.9 K/mm3 (1.2-5.4) 08/12/21 07:36 [place] # (Auto) 0.4 K/mm3 (0.0-0.8) 08/12/21 07:36 Eos # (Auto) 0.1 K/mm3 (0.0-0.4) 08/12/21 07:36 Baso # (Auto) 0.0 K/mm3 (0.0-0.1) 08/12/21 07:36 Seg Neutrophils % 51.7 % (40.0-70.0) 08/12/21 07:36 Seg Neutrophils # 2.5 K/mm3 (1.8-7.7) 08/12/21 07:36 Sodium 135 mmol/L (137-145) L 08/12/21 07:36 Potassium 3.5 mmol/L (3.6-5.0) L 08/12/21 07:36 Chloride 98.2 mmol/L (98-107) 08/12/21 07:36 Carbon Dioxide 29 mmol/L (22-30) 08/12/21 07:36 Anion Gap 11 mmol/L 08/12/21 07:36 BUN 28 mg/dL (7-17) H 08/12/21 07:36 Creatinine 0.6 mg/dL (0.6-1.2) 08/12/21 07:36 Estimated GFR > 60 ml/min 08/12/21 07:36 BUN/Creatinine Ratio 47 % 08/12/21 07:36 Glucose 90 mg/dL (65-100) 08/12/21 07:36 POC Glucose 164 mg/dL (70-105) H 08/14/21 18:37 Hemoglobin A1c 5.4 % (4-6) 08/12/21 07:36 Calcium 9.9 mg/dL (8.4-10.2) 08/12/21 07:36 Total Bilirubin 0.30 mg/dL (0.1-1.2) 08/12/21 07:36 AST 24 units/L (5-40) 08/12/21 07:36 ALT 20 units/L (7-56) 08/12/21 07:36 Alkaline Phosphatase 72 units/L (35-129) 08/12/21 07:36 Total Protein 7.4 g/dL (6.3-8.2) 08/12/21 07:36 Albumin 4.2 g/dL (3.9-5) 08/12/21 07:36 Albumin/Globulin Ratio 1.3 % 08/12/21 07:36 Triglycerides 65 mg/dL (2-149) 08/12/21 07:36 Cholesterol 146 mg/dL (50-199) 08/12/21 07:36 LDL Cholesterol Direct 72 mg/dL (50-130) 08/12/21 07:36 HDL Cholesterol 63 mg/dL (40-59) H 08/12/21 07:36 Cholesterol/HDL Ratio 2.31 % 08/12/21 07:36 TSH 1.570 mlU/mL (0.270-4.200) 08/12/21 07:36 [place]/IV: Voiding Method Toilet Active Medications - Current Medications Current Medications: Generic Name Dose Route Start Last Admin Trade Name Freq PRN Reason Stop Dose Admin Acetaminophen 650 mg 08/11/21 09:00 Acetaminophen 325 Mg Tab PO Q6H PRN Headache Amlodipine Besylate 10 mg 08/11/21 10:00 08/14/21 09:38 Amlodipine 10 Mg Tab PO Not Given DAILY NMA Clonazepam 0.5 mg 08/11/21 09:00 Clonazepam 0.5 Mg Tab PO TID PRN Seizures Divalproex Sodium 250 mg 08/11/21 14:00 08/14/21 20:[address] 250 Mg Tab PO 250 mg TID NAM Administration Hydralazine HCl 10 mg 08/11/21 20:00 Hydralazine 10 Mg Tab PO Q4H PRN Hypertension Levofloxacin 500 mg 08/11/21 11:00 08/14/21 09:37 Levofloxacin 500 Mg Tab PO 08/15/21 10:01 500 mg Q24HR NAM Administration Melatonin 5 mg 08/13/21 09:14 08/13/21 21:08 Melatonin 5 Mg Tab PO 5 mg QHS PRN Administration Sleep Oxycodone HCl 30 mg 08/11/21 14:00 08/13/21 22:02 Oxycodone 15 Mg Tab PO 30 mg Q8HR PRN Administration Pain , Severe (7-10) Pantoprazole Sodium 20 mg 08/12/21 07:30 08/14/21 08:09 Pantoprazole 20 Mg Tab PO 20 mg QDAC NAM Administration Quetiapine Fumarate 50 mg 08/13/21 10:00 08/14/21 09:37 Quetiapine 25 Mg Tab PO 50 mg BID NAM Administration Temazepam 30 mg 08/11/21 22:00 08/13/21 21:09 Temazepam 15 Mg Cap PO 30 mg QHS NAM Administration Tramadol HCl 25 mg 08/11/21 12:00 08/12/21 21:16 Tramadol 50 Mg Tab PO 25 mg Q8H PRN Administration Pain, Moderate (4-6)
[2021-08-14] MEDS: TEMAZEPAM 15 MG CAP PO SCH (21:13)
[2021-08-14] MEDS: OXYCODONE 15 MG TAB PO PRN (22:20)
--- NOTE | 2021-08-15 08:38 | Progress Note ---
Subjective Date of service: 08/15/21 Principal diagnosis: Neurocognitive w/behavioral Disturbance Subjective Comment: The patient was seen today. She is eating breakfast. She says her appetite is good. The patient says she is doing fine and slept well. But nurse today states the patient was up obsessing over her bed, and didn't sleep well. The patient denies SI/HI or hallucinations of any kind. REVIEW OF SYSTEMS Unable to obtain MENTAL STATUS EXAMINATION Unable to obtain Assessment (1) Neurocognitive W/Behavioral Disturbances Current Visit: Yes Status: Acute Treatment Plan Patient admitted for inpatient psychiatric evaluation, medication adjustment and close monitoring The patient's behavior, mood, sleep and appetite will be closely monitored. Patient enrolled in individual and group therapeutic sessions and encouraged to attend. Patient provided with a safe and structured environment. Patient's physical health needs will be addressed by the Hospitalist. Hospitalist Consulted Labs including CBC, CMP, Lipid profile and Hemoglobin A1C levels ordered for baseline reference Social Assessment will be completed and the Data Administrator will work with patient and family to ensure a suitable and safe disposition Medication adjustment will be made as clinically indicated Increase Melatonin 10mg po qhs prn insomnia Usual Wellness Religion/Preservation: - Start Trazodone 50 mg po QHS & 50 mg po QHS PRN between 10 PM & 2 AM for insomnia - Start Melatonin 5 mg po QHS to promote circadian rhythm The patient agreed on the treatment plan, understood the risk, benefit, alternative treatment, potential consequence of no treatment, and gave informed consent. Estimated days: 7 Post hospital care: primary care provider, psychiatric provider Case staffed with Dr. Lopez Medications and Allergies Allergies Allergy/AdvReac Type Severity Reaction Status Date / Time cephalexin Allergy Unknown Verified 08/11/21 00:21 diphenhydramine Allergy Unknown Verified 08/11/21 00:22 gabapentin Allergy Unknown Unverified 08/10/21 16:24 Penicillins Allergy Unknown Unverified 08/10/21 16:24 Sulfa (Sulfonamide Allergy Unknown Unverified 08/10/21 16:24 Antibiotics) zolpidem Allergy Unknown Unverified 08/10/21 16:25 Home Medications Medication Instructions Recorded Confirmed Last Taken Type Divalproex Dr [DepaKOTE DR] 250 mg PO TID 08/10/21 08/10/21 Unknown History Oxycodone HCl [roxiCODONE] 30 mg PO Q8H PRN 08/10/21 08/10/21 Unknown History Quetiapine Fumarate [SEROquel] 50 mg PO QHS 08/10/21 08/10/21 Unknown History Tramadol HCl 25 mg PO Q8H PRN 08/10/21 08/11/21 Unknown History amLODIPine [Norvasc] 10 mg PO DAILY 08/10/21 08/10/21 Unknown History clonazePAM [KlonoPIN] 0.5 mg PO TID PRN 08/10/21 08/10/21 Unknown History Acetaminophen [Aphen] 650 mg PO Q6H PRN 08/11/21 08/11/21 Unknown History Ciprofloxacin HCl 500 mg PO BID 08/11/21 08/11/21 Unknown History Temazepam [Restoril] 30 mg PO QHS 08/11/21 08/11/21 Unknown History Active Meds: Active Medications Acetaminophen (Acetaminophen 325 Mg Tab) 650 mg PO Q6H PRN PRN Reason: Headache Amlodipine Besylate (Amlodipine 10 Mg Tab) 10 mg PO DAILY [facility] Last Admin: 08/14/21 09:38 Dose: Not Given Clonazepam (Clonazepam 0.5 Mg Tab) 0.5 mg PO TID PRN PRN Reason: Seizures Divalproex Sodium (Divalproex Dr 250 Mg Tab) 250 mg PO TID [facility] Last Admin: 08/14/21 20:26 Dose: 250 mg Hydralazine HCl (Hydralazine 10 Mg Tab) 10 mg PO Q4H PRN PRN Reason: Hypertension Levofloxacin (Levofloxacin 500 Mg Tab) 500 mg PO Q24HR [facility] Stop: 08/15/21 10:01 Last Admin: 08/14/21 09:37 Dose: 500 mg Melatonin (Melatonin 5 Mg Tab) 5 mg PO QHS PRN PRN Reason: Sleep Last Admin: 08/13/21 21:08 Dose: 5 mg Oxycodone HCl (Oxycodone 15 Mg Tab) 30 mg PO Q8HR PRN PRN Reason: Pain , Severe (7-10) Last Admin: 08/14/21 22:20 Dose: 30 mg Pantoprazole Sodium (Pantoprazole 20 Mg Tab) 20 mg PO QDAC [facility] Last Admin: 08/14/21 08:09 Dose: 20 mg Quetiapine Fumarate (Quetiapine 25 Mg Tab) 50 mg PO BID NAM Last Admin: 08/14/21 21:13 Dose: 50 mg Temazepam (Temazepam 15 Mg Cap) 30 mg PO QHS NAM Last Admin: 08/14/21 21:13 Dose: 30 mg Tramadol HCl (Tramadol 50 Mg Tab) 25 mg PO Q8H PRN PRN Reason: Pain, Moderate (4-6) Last Admin: 08/12/21 21:16 Dose: 25 mg Results - Results Labs/Vitals: Laboratory Last Values WBC 4.9 K/mm3 (4.5-11.0) 08/12/21 07:36 RBC 4.29 M/mm3 (3.65-5.03) 08/12/21 07:36 Hgb 12.8 gm/dl (10.1-14.3) 08/12/21 07:36 Hct 39.2 % (30.3-42.9) 08/12/21 07:36 MCV 91 fl (79-97) 08/12/21 07:36 MCH 30 pg (28-32) 08/12/21 07:36 MCHC 33 % (30-34) 08/12/21 07:36 RDW 14.4 % (13.2-15.2) 08/12/21 07:36 Plt Count 231 K/mm3 (140-440) 08/12/21 07:36 Lymph % (Auto) 38.1 % (13.4-35.0) H 08/12/21 07:36 [place] % (Auto) 7.4 % (0.0-7.3) H 08/12/21 07:36 Eos % (Auto) 1.9 % (0.0-4.3) 08/12/21 07:36 Baso % (Auto) 0.9 % (0.0-1.8) 08/12/21 07:36 Lymph # (Auto) 1.9 K/mm3 (1.2-5.4) 08/12/21 07:36 [place] # (Auto) 0.4 K/mm3 (0.0-0.8) 08/12/21 07:36 Eos # (Auto) 0.1 K/mm3 (0.0-0.4) 08/12/21 07:36 Baso # (Auto) 0.0 K/mm3 (0.0-0.1) 08/12/21 07:36 Seg Neutrophils % 51.7 % (40.0-70.0) 08/12/21 07:36 Seg Neutrophils # 2.5 K/mm3 (1.8-7.7) 08/12/21 07:36 Sodium 135 mmol/L (137-145) L 08/12/21 07:36 Potassium 3.5 mmol/L (3.6-5.0) L 08/12/21 07:36 Chloride 98.2 mmol/L (98-107) 08/12/21 07:36 Carbon Dioxide 29 mmol/L (22-30) 08/12/21 07:36 Anion Gap 11 mmol/L 08/12/21 07:36 BUN 28 mg/dL (7-17) H 08/12/21 07:36 Creatinine 0.6 mg/dL (0.6-1.2) 08/12/21 07:36 Estimated GFR > 60 ml/min 08/12/21 07:36 BUN/Creatinine Ratio 47 % 08/12/21 07:36 Glucose 90 mg/dL (65-100) 08/12/21 07:36 POC Glucose 164 mg/dL (70-105) H 08/14/21 18:37 Hemoglobin A1c 5.4 % (4-6) 08/12/21 07:36 Calcium 9.9 mg/dL (8.4-10.2) 08/12/21 07:36 Total Bilirubin 0.30 mg/dL (0.1-1.2) 08/12/21 07:36 AST 24 units/L (5-40) 08/12/21 07:36 ALT 20 units/L (7-56) 08/12/21 07:36 Alkaline Phosphatase 72 units/L (35-129) 08/12/21 07:36 Total Protein 7.4 g/dL (6.3-8.2) 08/12/21 07:36 Albumin 4.2 g/dL (3.9-5) 08/12/21 07:36 Albumin/Globulin Ratio 1.3 % 08/12/21 07:36 Triglycerides 65 mg/dL (2-149) 08/12/21 07:36 Cholesterol 146 mg/dL (50-199) 08/12/21 07:36 LDL Cholesterol Direct 72 mg/dL (50-130) 08/12/21 07:36 HDL Cholesterol 63 mg/dL (40-59) H 08/12/21 07:36 Cholesterol/HDL Ratio 2.31 % 08/12/21 07:36 TSH 1.570 mlU/mL (0.270-4.200) 08/12/21 07:36 Last Vital Signs Temp 98.6 F 08/14/21 19:24 Pulse 84 08/14/21 19:24 Resp 16 08/14/21 19:24 BP 126/60 08/14/21 19:24 Pulse Ox 96 08/14/21 19:24
[2021-08-15] MEDS: QUEtiapine 25 MG TAB PO SCH ×2 (10:01→21:05)
[2021-08-15] MEDS: DIVALPROEX DR 250 MG TAB PO SCH ×3 (10:01→20:56)
[2021-08-15] MEDS: amLODIPine 10 MG TAB PO SCH (10:01)
[2021-08-15] MEDS: levoFLOXacin 500 MG TAB PO SCH (10:02)
[2021-08-15] MEDS: PANTOPRAZOLE 20 MG TAB PO SCH (10:02)
[2021-08-15] MEDS: TEMAZEPAM 15 MG CAP PO SCH (21:06)
[2021-08-15] MEDS ORDERED: MELATONIN 5 MG TAB PO PRN (22:00)
[2021-08-16] MEDS: PANTOPRAZOLE 20 MG TAB PO SCH (09:08)
[2021-08-16] MEDS: QUEtiapine 25 MG TAB PO SCH ×2 (09:08→21:34)
[2021-08-16] MEDS: DIVALPROEX DR 250 MG TAB PO SCH ×3 (09:08→20:45)
[2021-08-16] MEDS: amLODIPine 10 MG TAB PO SCH ×2 (09:08→09:29)
--- NOTE | 2021-08-16 10:33 | Progress Note ---
Subjective Date of service: 08/16/21 Principal diagnosis: Neurocognitive w/behavioral Disturbance Subjective Comment: The patient was seen today. She is pleasant. She says she's doing fine. She denies SI/HI or hallucinations of any kimd. She says she's eating well and slept well. REVIEW OF SYSTEMS Unable to obtain MENTAL STATUS EXAMINATION Unable to obtain Assessment (1) Neurocognitive W/Behavioral Disturbances Current Visit: Yes Status: Acute Treatment Plan Patient admitted for inpatient psychiatric evaluation, medication adjustment and close monitoring The patient's behavior, mood, sleep and appetite will be closely monitored. Patient enrolled in individual and group therapeutic sessions and encouraged to attend. Patient provided with a safe and structured environment. Patient's physical health needs will be addressed by the Hospitalist. Hospitalist Consulted Labs including CBC, CMP, Lipid profile and Hemoglobin A1C levels ordered for baseline reference Social Assessment will be completed and the Pretzel Cooker will work with patient and family to ensure a suitable and safe disposition Medication adjustment will be made as clinically indicated Increase Melatonin 10mg po qhs prn insomnia yesterday No changes made today Usual Wellness Confucianist/Preservation: - Start Trazodone 50 mg po QHS & 50 mg po QHS PRN between 10 PM & 2 AM for insomnia - Start Melatonin 5 mg po QHS to promote circadian rhythm The patient agreed on the treatment plan, understood the risk, benefit, alternative treatment, potential consequence of no treatment, and gave informed consent. Estimated days: 7 Post hospital care: primary care provider, psychiatric provider Case staffed with Dr. Lopez Medications and Allergies Allergies Allergy/AdvReac Type Severity Reaction Status Date / Time cephalexin Allergy Unknown Verified 08/11/21 00:21 diphenhydramine Allergy Unknown Verified 08/11/21 00:22 gabapentin Allergy Unknown Unverified 08/10/21 16:24 Penicillins Allergy Unknown Unverified 08/10/21 16:24 Sulfa (Sulfonamide Allergy Unknown Unverified 08/10/21 16:24 Antibiotics) zolpidem Allergy Unknown Unverified 08/10/21 16:25 Home Medications Medication Instructions Recorded Confirmed Last Taken Type Divalproex Dr [DepaKOTE DR] 250 mg PO TID 08/10/21 08/10/21 Unknown History Oxycodone HCl [roxiCODONE] 30 mg PO Q8H PRN 08/10/21 08/10/21 Unknown History Quetiapine Fumarate [SEROquel] 50 mg PO QHS 08/10/21 08/10/21 Unknown History Tramadol HCl 25 mg PO Q8H PRN 08/10/21 08/11/21 Unknown History amLODIPine [Norvasc] 10 mg PO DAILY 08/10/21 08/10/21 Unknown History clonazePAM [KlonoPIN] 0.5 mg PO TID PRN 08/10/21 08/10/21 Unknown History Acetaminophen [Aphen] 650 mg PO Q6H PRN 08/11/21 08/11/21 Unknown History Ciprofloxacin HCl 500 mg PO BID 08/11/21 08/11/21 Unknown History Temazepam [Restoril] 30 mg PO QHS 08/11/21 08/11/21 Unknown History Active Meds: Active Medications Acetaminophen (Acetaminophen 325 Mg Tab) 650 mg PO Q6H PRN PRN Reason: Headache Last Admin: 08/16/21 00:19 Dose: 650 mg Amlodipine Besylate (Amlodipine 10 Mg Tab) 10 mg PO DAILY [facility] Last Admin: 08/16/21 09:29 Dose: 10 mg Clonazepam (Clonazepam 0.5 Mg Tab) 0.5 mg PO TID PRN PRN Reason: Seizures Divalproex Sodium (Divalproex Dr 250 Mg Tab) 250 mg PO TID [facility] Last Admin: 08/16/21 09:08 Dose: 250 mg Hydralazine HCl (Hydralazine 10 Mg Tab) 10 mg PO Q4H PRN PRN Reason: Hypertension Melatonin (Melatonin 5 Mg Tab) 10 mg PO QHS PRN PRN Reason: Sleep Oxycodone HCl (Oxycodone 15 Mg Tab) 30 mg PO Q8HR PRN PRN Reason: Pain , Severe (7-10) Last Admin: 08/14/21 22:20 Dose: 30 mg Pantoprazole Sodium (Pantoprazole 20 Mg Tab) 20 mg PO QDAC [facility] Last Admin: 08/16/21 09:08 Dose: 20 mg Quetiapine Fumarate (Quetiapine 25 Mg Tab) 50 mg PO BID [facility] Last Admin: 08/16/21 09:08 Dose: 50 mg Temazepam (Temazepam 15 Mg Cap) 30 mg PO QHS [facility] Last Admin: 08/15/21 21:06 Dose: 30 mg Tramadol HCl (Tramadol 50 Mg Tab) 25 mg PO Q8H PRN PRN Reason: Pain, Moderate (4-6) Last Admin: 08/12/21 21:16 Dose: 25 mg Results - Results Labs/Vitals: Laboratory Last Values WBC 4.9 K/mm3 (4.5-11.0) 08/12/21 07:36 RBC 4.29 M/mm3 (3.65-5.03) 08/12/21 07:36 Hgb 12.8 gm/dl (10.1-14.3) 08/12/21 07:36 Hct 39.2 % (30.3-42.9) 08/12/21 07:36 MCV 91 fl (79-97) 08/12/21 07:36 MCH 30 pg (28-32) 08/12/21 07:36 MCHC 33 % (30-34) 08/12/21 07:36 RDW 14.4 % (13.2-15.2) 08/12/21 07:36 Plt Count 231 K/mm3 (140-440) 08/12/21 07:36 Lymph % (Auto) 38.1 % (13.4-35.0) H 08/12/21 07:36 [place] % (Auto) 7.4 % (0.0-7.3) H 08/12/21 07:36 Eos % (Auto) 1.9 % (0.0-4.3) 08/12/21 07:36 Baso % (Auto) 0.9 % (0.0-1.8) 08/12/21 07:36 Lymph # (Auto) 1.9 K/mm3 (1.2-5.4) 08/12/21 07:36 [place] # (Auto) 0.4 K/mm3 (0.0-0.8) 08/12/21 07:36 Eos # (Auto) 0.1 K/mm3 (0.0-0.4) 08/12/21 07:36 Baso # (Auto) 0.0 K/mm3 (0.0-0.1) 08/12/21 07:36 Seg Neutrophils % 51.7 % (40.0-70.0) 08/12/21 07:36 Seg Neutrophils # 2.5 K/mm3 (1.8-7.7) 08/12/21 07:36 Sodium 135 mmol/L (137-145) L 08/12/21 07:36 Potassium 3.5 mmol/L (3.6-5.0) L 08/12/21 07:36 Chloride 98.2 mmol/L (98-107) 08/12/21 07:36 Carbon Dioxide 29 mmol/L (22-30) 08/12/21 07:36 Anion Gap 11 mmol/L 08/12/21 07:36 BUN 28 mg/dL (7-17) H 08/12/21 07:36 Creatinine 0.6 mg/dL (0.6-1.2) 08/12/21 07:36 Estimated GFR > 60 ml/min 08/12/21 07:36 BUN/Creatinine Ratio 47 % 08/12/21 07:36 Glucose 90 mg/dL (65-100) 08/12/21 07:36 POC Glucose 164 mg/dL (70-105) H 08/14/21 18:37 Hemoglobin A1c 5.4 % (4-6) 08/12/21 07:36 Calcium 9.9 mg/dL (8.4-10.2) 08/12/21 07:36 Total Bilirubin 0.30 mg/dL (0.1-1.2) 08/12/21 07:36 AST 24 units/L (5-40) 08/12/21 07:36 ALT 20 units/L (7-56) 08/12/21 07:36 Alkaline Phosphatase 72 units/L (35-129) 08/12/21 07:36 Total Protein 7.4 g/dL (6.3-8.2) 08/12/21 07:36 Albumin 4.2 g/dL (3.9-5) 08/12/21 07:36 Albumin/Globulin Ratio 1.3 % 08/12/21 07:36 Triglycerides 65 mg/dL (2-149) 08/12/21 07:36 Cholesterol 146 mg/dL (50-199) 08/12/21 07:36 LDL Cholesterol Direct 72 mg/dL (50-130) 08/12/21 07:36 HDL Cholesterol 63 mg/dL (40-59) H 08/12/21 07:36 Cholesterol/HDL Ratio 2.31 % 08/12/21 07:36 TSH 1.570 mlU/mL (0.270-4.200) 08/12/21 07:36 Last Vital Signs Temp 98.6 F 08/15/21 08:35 Pulse 76 08/16/21 09:29 Resp 18 08/16/21 00:19 BP 126/73 08/16/21 09:29 Pulse Ox 99 08/15/21 08:35
[2021-08-16] MEDS: TEMAZEPAM 15 MG CAP PO SCH (21:33)
[2021-08-16] MEDS: OXYCODONE 15 MG TAB PO PRN (22:21)
--- NOTE | 2021-08-17 08:51 | Discharge Summary ---
Providers - Providers Date of Admission: 08/11/21 00:18 Date of discharge: 08/17/21 Attending physician: ERWIN LEWIS MD 08/10/21 23:18 Consult to Physician [CONS] Routine Comment: Consulting Provider: MYA ARELLANO Physician Instructions: Reason For Exam: H & P Primary care physician: [employer] Hospitalization Reason for admission: delusional Admitting Diagnosis: F02.81 - DEMENTIA IN OTH DISEASES CLASSD ELSWHR W BEHAVIORAL DISTURB Hospital course: The patient was provided inpatient psychiatric treatment with safe and supportive environment, group/individual therapy, psychiatric medication, medication adjustment, adverse effect monitor, medical evaluation, medical treatment, social service assessment, social support meeting, placement assessment and psycho-education. The patients mood, cognition, behavior, motivation, compliance to treatment and appreciation on family/social support are improved and stabilized. At the time of discharge, the patient had no suicidal ideas, no homicidal ideas, no aggressive thoughts, no endangering behavior and no debilitating adverse effects. The patient agreed on the treatment plan, understood the risk, benefit, alternative treatment, potential consequence of no treatment, and gave informed consent. Disposition: HOME / SELF CARE / HOMELESS Time spent for discharge: 35 Allergies/Adverse Reactions: Allergies cephalexin Allergy (Verified 08/11/21 00:21) Unknown diphenhydramine Allergy (Verified 08/11/21 00:22) Unknown gabapentin Allergy (Unverified 08/10/21 16:24) Unknown Penicillins Allergy (Unverified 08/10/21 16:24) Unknown Sulfa (Sulfonamide Antibiotics) Allergy (Unverified 08/10/21 16:24) Unknown zolpidem Allergy (Unverified 08/10/21 16:25) Unknown Vital Signs: Last Vital Signs Temp 97.4 F L 08/16/21 22:00 Pulse 86 08/16/21 22:00 Resp 18 08/16/21 22:00 BP 166/75 08/16/21 22:00 Pulse Ox 95 08/16/21 22:00 Last Lab: Laboratory Last Values WBC 4.9 K/mm3 (4.5-11.0) 08/12/21 07:36 RBC 4.29 M/mm3 (3.65-5.03) 08/12/21 07:36 Hgb 12.8 gm/dl (10.1-14.3) 08/12/21 07:36 Hct 39.2 % (30.3-42.9) 08/12/21 07:36 MCV 91 fl (79-97) 08/12/21 07:36 MCH 30 pg (28-32) 08/12/21 07:36 MCHC 33 % (30-34) 08/12/21 07:36 RDW 14.4 % (13.2-15.2) 08/12/21 07:36 Plt Count 231 K/mm3 (140-440) 08/12/21 07:36 Lymph % (Auto) 38.1 % (13.4-35.0) H 08/12/21 07:36 [place] % (Auto) 7.4 % (0.0-7.3) H 08/12/21 07:36 Eos % (Auto) 1.9 % (0.0-4.3) 08/12/21 07:36 Baso % (Auto) 0.9 % (0.0-1.8) 08/12/21 07:36 Lymph # (Auto) 1.9 K/mm3 (1.2-5.4) 08/12/21 07:36 [place] # (Auto) 0.4 K/mm3 (0.0-0.8) 08/12/21 07:36 Eos # (Auto) 0.1 K/mm3 (0.0-0.4) 08/12/21 07:36 Baso # (Auto) 0.0 K/mm3 (0.0-0.1) 08/12/21 07:36 Seg Neutrophils % 51.7 % (40.0-70.0) 08/12/21 07:36 Seg Neutrophils # 2.5 K/mm3 (1.8-7.7) 08/12/21 07:36 Sodium 135 mmol/L (137-145) L 08/12/21 07:36 Potassium 3.5 mmol/L (3.6-5.0) L 08/12/21 07:36 Chloride 98.2 mmol/L (98-107) 08/12/21 07:36 Carbon Dioxide 29 mmol/L (22-30) 08/12/21 07:36 Anion Gap 11 mmol/L 08/12/21 07:36 BUN 28 mg/dL (7-17) H 08/12/21 07:36 Creatinine 0.6 mg/dL (0.6-1.2) 08/12/21 07:36 Estimated GFR > 60 ml/min 08/12/21 07:36 BUN/Creatinine Ratio 47 % 08/12/21 07:36 Glucose 90 mg/dL (65-100) 08/12/21 07:36 POC Glucose 164 mg/dL (70-105) H 08/14/21 18:37 Hemoglobin A1c 5.4 % (4-6) 08/12/21 07:36 Calcium 9.9 mg/dL (8.4-10.2) 08/12/21 07:36 Total Bilirubin 0.30 mg/dL (0.1-1.2) 08/12/21 07:36 AST 24 units/L (5-40) 08/12/21 07:36 ALT 20 units/L (7-56) 08/12/21 07:36 Alkaline Phosphatase 72 units/L (35-129) 08/12/21 07:36 Total Protein 7.4 g/dL (6.3-8.2) 08/12/21 07:36 Albumin 4.2 g/dL (3.9-5) 08/12/21 07:36 Albumin/Globulin Ratio 1.3 % 08/12/21 07:36 Triglycerides 65 mg/dL (2-149) 08/12/21 07:36 Cholesterol 146 mg/dL (50-199) 08/12/21 07:36 LDL Cholesterol Direct 72 mg/dL (50-130) 08/12/21 07:36 HDL Cholesterol 63 mg/dL (40-59) H 08/12/21 07:36 Cholesterol/HDL Ratio 2.31 % 08/12/21 07:36 TSH 1.570 mlU/mL (0.270-4.200) 08/12/21 07:36 Core Measure Documentation - Palliative Care Palliative Care/ Comfort Measures: Not Applicable - Core Measures Any of the following diagnoses?: none Exam - Constitutional Vitals: Temp Pulse Resp BP Pulse Ox 97.4 F L 86 18 166/75 95 08/16/21 22:00 08/16/21 22:00 08/16/21 22:00 08/16/21 22:00 08/16/21 22:00 General appearance: Present: no acute distress, mild distress - EENT Eyes: Present: PERRL, EOM intact ENT: hearing intact, clear oral mucosa - Neck Neck: Present: supple, normal ROM - Respiratory Respiratory effort: normal Plan Activity: advance as tolerated Weight Bearing Status: Weight Bear as Tolerated Care Plan Goals: Maintain good and stable mental health Plan of Treatment: The patient should be compliant with medications, not to use drugs and not to drink alcohol.The patient understands that if suicidal ideas, homicidal ideas, or any endangering thoughts/behavior arise, they should immediately seek for emergent assistance including but not limited to crisis hot line and emergency room. Follow up with outpatient Psychiatrist and PCP within 7 - 14 days of discharge. Assessment: neurocognitive w/behavioral disturbance Follow up with: PRIMARY CARE, [Primary Care Provider] - 7 Days Prescriptions: Melatonin [Melatonin 5MG TAB] 10 mg PO QHS PRN #30 tablet PRN Reason: Sleep Divalproex Dr [Depakote Dr] 250 mg PO TID #90 Quetiapine Fumarate [SEROquel] 50 mg PO BID #60
[2021-08-17] MEDS: DIVALPROEX DR 250 MG TAB PO SCH (09:41)
[2021-08-17] MEDS: amLODIPine 10 MG TAB PO SCH (09:42)
[2021-08-17] MEDS: PANTOPRAZOLE 20 MG TAB PO SCH (09:42)
[2021-08-17] MEDS: QUEtiapine 25 MG TAB PO SCH (09:42)
[2021-08-17 09:47] VITALS: BP 110/48
--- NOTE | 2021-08-17 10:16 | Progress Note ---
Assessment and Plan - Patient Problems (1) Vascular dementia with behavioral disturbance Current Visit: Yes Status: Acute Plan to address problem: Verbal prompting, verbal redirection, benzodiazepine therapy as clinically indicated. (2) Cerebral atherosclerosis Current Visit: Yes Status: Acute Plan to address problem: Risk factor reduction, antiplatelet therapy as clinically indicated. (3) GAYATHRI (generalized anxiety disorder) Current Visit: Yes Status: Acute Plan to address problem: Benzodiazepine therapy as clinically indicated. (4) Depression Current Visit: Yes Status: Acute Plan to address problem: Continue medical management, cognitive behavioral therapy. (5) Paroxysmal A-fib Current Visit: Yes Status: Acute Plan to address problem: Supportive care, rate control. Continue current therapy. (6) Chronic pain syndrome Current Visit: Yes Status: Acute Plan to address problem: Pain control, pain assessment as per nursing protocol. (7) Malnutrition Current Visit: Yes Status: Acute Qualifiers: Protein-calorie malnutrition severity: moderate Plan to address problem: Dietary supplementation, increase protein intake, History Interval history: 71 YO Female with Vascular Dementia with Behavioral Disturbance, Cerebral Atherosclerosis, GAYATHRI, MDD, HTN, Praoxysmal Atrial Fib, chronic pain Syndrome admitted to [facility] for psychiatric stabilization. Consult placed by Dr. Franklin for medical management. Patient seen and evaluated in the recreation room. Patient denies fever, chills, chest pain, palpitation, adductive cough, skin rash, recent contact, known exposure to COVID-19. Patient resting comfortably. Patient denies pain. No reported nursing events. Hospitalist Physical - Constitutional Vitals: Temp Pulse Resp BP Pulse Ox 97.4 F L 78 18 110/48 95 08/16/21 22:00 08/17/21 09:42 08/16/21 22:00 08/17/21 09:42 08/16/21 22:00 General appearance: Present: no acute distress, well-nourished - EENT Eyes: Present: PERRL ENT: hearing decreased - Neck Neck: Present: supple - Respiratory Respiratory effort: normal Respiratory: bilateral: diminished - Cardiovascular Rhythm: regular Heart Sounds: Present: S1 & S2 - Extremities Extremities: no ischemia Peripheral Pulses: within normal limits - Abdominal General gastrointestinal: soft, non-tender, non-distended - Integumentary Integumentary: Present: clear, dry - Psychiatric Psychiatric: cooperative - Neurologic Neurologic: CNII-XII intact Results - Labs CBC & Chem 7: 08/12/21 07:36 08/12/21 07:36 Labs: Laboratory Last Values WBC 4.9 K/mm3 (4.5-11.0) 08/12/21 07:36 RBC 4.29 M/mm3 (3.65-5.03) 08/12/21 07:36 Hgb 12.8 gm/dl (10.1-14.3) 08/12/21 07:36 Hct 39.2 % (30.3-42.9) 08/12/21 07:36 MCV 91 fl (79-97) 08/12/21 07:36 MCH 30 pg (28-32) 08/12/21 07:36 MCHC 33 % (30-34) 08/12/21 07:36 RDW 14.4 % (13.2-15.2) 08/12/21 07:36 Plt Count 231 K/mm3 (140-440) 08/12/21 07:36 Lymph % (Auto) 38.1 % (13.4-35.0) H 08/12/21 07:36 [place] % (Auto) 7.4 % (0.0-7.3) H 08/12/21 07:36 Eos % (Auto) 1.9 % (0.0-4.3) 08/12/21 07:36 Baso % (Auto) 0.9 % (0.0-1.8) 08/12/21 07:36 Lymph # (Auto) 1.9 K/mm3 (1.2-5.4) 08/12/21 07:36 [place] # (Auto) 0.4 K/mm3 (0.0-0.8) 08/12/21 07:36 Eos # (Auto) 0.1 K/mm3 (0.0-0.4) 08/12/21 07:36 Baso # (Auto) 0.0 K/mm3 (0.0-0.1) 08/12/21 07:36 Seg Neutrophils % 51.7 % (40.0-70.0) 08/12/21 07:36 Seg Neutrophils # 2.5 K/mm3 (1.8-7.7) 08/12/21 07:36 Sodium 135 mmol/L (137-145) L 08/12/21 07:36 Potassium 3.5 mmol/L (3.6-5.0) L 08/12/21 07:36 Chloride 98.2 mmol/L (98-107) 08/12/21 07:36 Carbon Dioxide 29 mmol/L (22-30) 08/12/21 07:36 Anion Gap 11 mmol/L 08/12/21 07:36 BUN 28 mg/dL (7-17) H 08/12/21 07:36 Creatinine 0.6 mg/dL (0.6-1.2) 08/12/21 07:36 Estimated GFR > 60 ml/min 08/12/21 07:36 BUN/Creatinine Ratio 47 % 08/12/21 07:36 Glucose 90 mg/dL (65-100) 08/12/21 07:36 POC Glucose 164 mg/dL (70-105) H 08/14/21 18:37 Hemoglobin A1c 5.4 % (4-6) 08/12/21 07:36 Calcium 9.9 mg/dL (8.4-10.2) 08/12/21 07:36 Total Bilirubin 0.30 mg/dL (0.1-1.2) 08/12/21 07:36 AST 24 units/L (5-40) 08/12/21 07:36 ALT 20 units/L (7-56) 08/12/21 07:36 Alkaline Phosphatase 72 units/L (35-129) 08/12/21 07:36 Total Protein 7.4 g/dL (6.3-8.2) 08/12/21 07:36 Albumin 4.2 g/dL (3.9-5) 08/12/21 07:36 Albumin/Globulin Ratio 1.3 % 08/12/21 07:36 Triglycerides 65 mg/dL (2-149) 08/12/21 07:36 Cholesterol 146 mg/dL (50-199) 08/12/21 07:36 LDL Cholesterol Direct 72 mg/dL (50-130) 08/12/21 07:36 HDL Cholesterol 63 mg/dL (40-59) H 08/12/21 07:36 Cholesterol/HDL Ratio 2.31 % 08/12/21 07:36 TSH 1.570 mlU/mL (0.270-4.200) 08/12/21 07:36 [place]/IV: Voiding Method Toilet Active Medications - Current Medications Current Medications: Generic Name Dose Route Start Last Admin Trade Name Freq PRN Reason Stop Dose Admin Acetaminophen 650 mg 08/11/21 09:00 08/16/21 00:19 Acetaminophen 325 Mg Tab PO 650 mg Q6H PRN Administration Headache Amlodipine Besylate 10 mg 08/11/21 10:00 08/17/21 09:42 Amlodipine 10 Mg Tab PO Not Given DAILY NAM Clonazepam 0.5 mg 08/11/21 09:00 Clonazepam 0.5 Mg Tab PO TID PRN Seizures Divalproex Sodium 250 mg 08/11/21 14:00 08/17/21 09:[address] 250 Mg Tab PO 250 mg TID NAM Administration Hydralazine HCl 10 mg 08/11/21 20:00 Hydralazine 10 Mg Tab PO Q4H PRN Hypertension Melatonin 10 mg 08/15/21 22:00 08/16/21 22:22 Melatonin 5 Mg Tab PO 10 mg QHS PRN Administration Sleep Oxycodone HCl 30 mg 08/11/21 14:00 08/16/21 22:21 Oxycodone 15 Mg Tab PO 30 mg Q8HR PRN Administration Pain , Severe (7-10) Pantoprazole Sodium 20 mg 08/12/21 07:30 08/17/21 09:42 Pantoprazole 20 Mg Tab PO 20 mg QDAC NAM Administration Quetiapine Fumarate 50 mg 08/13/21 10:00 08/17/21 09:42 Quetiapine 25 Mg Tab PO 50 mg BID NAM Administration Temazepam 30 mg 08/11/21 22:00 08/16/21 21:33 Temazepam 15 Mg Cap PO 30 mg QHS NAM Administration Tramadol HCl 25 mg 08/11/21 12:00 08/12/21 21:16 Tramadol 50 Mg Tab PO 25 mg Q8H PRN Administration Pain, Moderate (4-6)
== END 2021-08-17 12:30 | disposition home or self-care (01) | DRG 884 ==
LOC: UNDOADMIN 16:15 → 3A 16:15 → 5A 08-11 00:18
PROVIDERS: ADMIT Psychiatry & Neurology Psychiatry; ATTEND Psychiatry & Neurology Psychiatry
DX: F01.51 Vascular dementia, unspecified severity, with behavioral disturbance (principal); E44.0 Moderate protein-calorie malnutrition; Z68.1 Body mass index [BMI] 19.9 or less, adult; I10 Essential (primary) hypertension; I67.2 Cerebral atherosclerosis; F32.A Depression, unspecified; G89.4 Chronic pain syndrome; I48.0 Paroxysmal atrial fibrillation; K21.9 Gastro-esophageal reflux disease without esophagitis; F41.1 Generalized anxiety disorder
CPT/HCPCS: 36415; 80053; 80061; 82962; 83036; 84443; 85025; G0378